=== PATIENT | male | born 2005 | race Caucasian/White ===

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

== ENCOUNTER 2024-04-30 21:51 | Emergency (ER) | payer BC, OTHER | END 2024-04-30 22:33 | disposition home or self-care (01) | LOC: MW.ED 21:51 | DX: T59.811A Toxic effect of smoke, accidental (unintentional), initial encounter (principal); Z88.1 Allergy status to other antibiotic agents; Z75.8 Other problems related to medical facilities and other health care | CPT/HCPCS: 93005; 93010; 99282; 99284 ==